=== PATIENT | male | born 1965 | race Caucasian/White ===

== ENCOUNTER 2016-11-06 13:11 | Outpatient (CLI) | payer MEDICAID | END 2016-11-06 13:12 | disposition home or self-care (01) | DX: Z71.3 Dietary counseling and surveillance (principal); E11.8 Type 2 diabetes mellitus with unspecified complications; Z68.39 Body mass index [BMI] 39.0-39.9, adult ==

== ENCOUNTER 2016-11-14 11:00 | Outpatient (CLI) | payer MEDICAID | END 2016-11-14 11:01 | disposition home or self-care (01) | DX: Z71.3 Dietary counseling and surveillance (principal); E11.8 Type 2 diabetes mellitus with unspecified complications; Z68.41 Body mass index [BMI] 40.0-44.9, adult ==

== ENCOUNTER 2016-11-29 | Outpatient (CLI) | payer MEDICAID | END 2016-11-29 10:40 | disposition home or self-care (01) ==

== ENCOUNTER 2016-12-27 07:08 | Outpatient (CLI) | payer MEDICAID | END 2016-12-27 07:09 | disposition home or self-care (01) | DX: E11.9 Type 2 diabetes mellitus without complications (principal) ==

== ENCOUNTER 2017-03-31 08:06 | Outpatient (CLI) | payer MEDICAID ==
[2017-03-31 13:54] LABS: HEMOGLOBIN A1C 0.87 g/dL
[2017-03-31 14:01] LABS: POTASSIUM 3.8 mmol/L (3.5-5.0)
[2017-03-31 14:18] LABS: THYROID STIMULATING HORMONE 0.23 uIU/mL (0.34-5.60)
== END 2017-03-31 08:07 | disposition home or self-care (01) ==
LOC: LAB.N 08:06
PROVIDERS: ATTEND Family Medicine
DX: E11.9 Type 2 diabetes mellitus without complications (principal); E55.9 Vitamin D deficiency, unspecified; E03.9 Hypothyroidism, unspecified
CPT/HCPCS: 36415; 80048; 82306; 83036; 84439; 84443

== ENCOUNTER 2017-05-09 14:28 | Outpatient (CLI) | payer MEDICAID ==
[2017-05-09 20:23] LABS: THYROID STIMULATING HORMONE 0.24 uIU/mL (0.34-5.60)
== END 2017-05-09 14:29 | disposition home or self-care (01) ==
LOC: LAB.WCP 14:28
PROVIDERS: ATTEND Family Medicine
DX: E03.9 Hypothyroidism, unspecified (principal)
CPT/HCPCS: 36415; 84439; 84443; 84481

== ENCOUNTER 2017-07-01 14:40 | Outpatient (CLI) | payer MEDICAID | END 2017-07-01 14:41 | disposition home or self-care (01) | LOC: SC 14:40 | PROVIDERS: ATTEND Nurse Practitioner Family | DX: G47.33 Obstructive sleep apnea (adult) (pediatric) (principal) | CPT/HCPCS: 99212; 99214 ==

== ENCOUNTER 2017-07-03 15:36 | Outpatient (CLI) | payer MEDICAID ==
[2017-07-03 12:57] LABS: CALCIUM 8.9 mg/dL (8.5-10.3); CREATININE 1.1 mg/dL (0.6-1.2); POTASSIUM 3.6 mmol/L (3.5-5.0)
[2017-07-03 13:18] LABS: HEMOGLOBIN A1C 0.58 g/dL
[2017-07-03 13:20] LABS: THYROID STIMULATING HORMONE 1.2 uIU/mL (0.34-5.60)
== END 2017-07-03 15:37 | disposition home or self-care (01) ==
LOC: LAB.N 15:36
PROVIDERS: ATTEND Family Medicine
DX: E11.9 Type 2 diabetes mellitus without complications (principal); E03.9 Hypothyroidism, unspecified
CPT/HCPCS: 36415; 80048; 83036; 84439; 84443; 84481

== ENCOUNTER 2017-10-16 13:00 | Outpatient (CLI) | payer MEDICAID | END 2017-10-16 13:15 | disposition home or self-care (01) | LOC: RT.N 13:00 | PROVIDERS: ATTEND Family Medicine | DX: I49.9 Cardiac arrhythmia, unspecified (principal); E11.9 Type 2 diabetes mellitus without complications | CPT/HCPCS: 93005 ==

== ENCOUNTER 2018-03-03 08:00 | Outpatient (CLI) | payer MEDICAID ==
[2018-03-03 13:57] LABS: CALCIUM 8.8 mg/dL (8.5-10.3); CREATININE 1.1 mg/dL (0.6-1.2)
[2018-03-03 15:08] LABS: HB2 TOTAL 15.9 g/dL; HEMOGLOBIN A1C 0.74 g/dL; HEMOGLOBIN A1C % 6.4 % (4.6-6.2)
== END 2018-03-03 08:01 | disposition home or self-care (01) ==
LOC: LAB.WCP 08:00
PROVIDERS: ATTEND Family Medicine
DX: E11.9 Type 2 diabetes mellitus without complications (principal)
CPT/HCPCS: 36415; 80048; 83036

== ENCOUNTER 2020-07-26 20:48 | Outpatient (CLI) | payer OTHER | END 2020-07-26 20:49 | disposition home or self-care (01) | LOC: COV 20:48 | PROVIDERS: ATTEND Family Medicine | DX: R50.9 Fever, unspecified (principal); Z20.828 Contact with and (suspected) exposure to other viral communicable diseases ==

== ENCOUNTER 2023-11-05 15:07 | Outpatient (CLI) | payer OTHER ==
--- NOTE | 2023-11-05 15:57 | Sleep Patient Instructions ---
Sleep Center Visit Summary - Patient Visit Information Reason for Visit: Initial consultation - Patient Instructions Additional Instructions: You will continue with CPAP therapy with pressure set at 4-20 cmH2O. We encourage you to continue to try to lose weight. Please follow up with the sleep care office in 1 year. - Clinic Information Contact: [facility] [address] [place] [address] [email or web address] T: [phone]
--- NOTE | 2023-11-05 16:03 | SLEEP CARE CONSULTATION ---
Information from patient questionnaire entered by Bianca Joseph. I have reviewed and concur with the information entered by Bianca Joseph. This document represents the service I personally performed and the decisions made by me, Nasrin Carranza ARNP. History of Present Illness Service Date and Time: 11/05/2023 1507 Reason for Visit: New patient, sleep apnea on CPAP therapy, Re-establish care Chief Complaint: reports: Excessive daytime sleepiness, Fatigue Date of Onset: ON AND OFF SINCE 2011 Usual bedtime: 930-1030PM Time it takes to fall asleep: 15-20MIN Snores at night: No Observed to quit breathing while asleep: Yes Sleeps alone due to snoring: No Number of times waking at night: 1-2 Reasons for waking at night: reports: Bathroom Toss, Turn, or Twitch while sleeping: No Recalls having dreams: Yes Usually gets out of bed at: 6AM Feels refreshed in the morning: No Morning headache: No Sleepy or fatigued during the day: Yes Ever fallen asleep while driving: No Takes day naps: Yes Dreams during day naps: No Prior sleep studies: Yes Year and Where: [facility] 2012 Additional HPI information: VY KAY was previously diagnosed to have mild, AHI 5.4 with supine AHI 26.5, obstructive sleep apnea-hypopnea syndrome and returned today to re- establish care for CPAP therapy. - Parasomnia Symptoms Ever been unable to move upon waking from sleep: No Walks in sleep: No Talks in sleep: No Ever acted out dreams in sleep: No Ever felt weak in the knees when startled or emotional: No Bothered by creepy, crawly, restless sensations in legs: No Problems with memory or concentration: Yes CPAP Compliance Data - Data Reviewed with Patient Average duration of nightly device use: 7:54 hours Compliance rate %: 98.8 (347/348 days used) Current pressure setting (cmH2O): 4-20 Average residual AHI: 2.1 Compliance data discussion: He has a Dreamstation 2 that he received about a year ago from [employer] to replace last machine on recall. He used to use [employer] for supplies but he buying his supplies online. He is using a full face [employer] Quattro Air, medium cushion. He changes the cushion every three months. Subjective Patient concerns: denies: aerophagia, mask discomfort, air blowing in eyes, mask leak noise, condensation in mask/hose, nasal congestion, dry mouth, nose, throat, epistaxis Observed to snore while using device: No Current pressure setting perceived as: comfortable On therapy, patient: reports: other (He is not feeling rested now but it definitely did improve sleep and restfulness when he first used it). denies: drowsiness while driving Initial [place] Sleepiness Scale score: 3 (11/05/23) Past Medical History Past Medical History: reports: Hypertension, Diabetes, Hypothyroidism, Fibromyalgia, Anxiety, Depression, Other (HYPERLIPIDEMIA) Social History The patient's occupation is a [employer]. Patient is and lives in [place]. Have you smoked in the past 12 months: No Alcohol use: No Caffeine use: Yes Caffeine amount and frequency: 10-12OZ 4X PER WORK DAY Family History Family history of sleep disordered breathing: No Allergies and Home Medications Known drug allergies: Yes ( LISTED) Drug allergies reviewed: Yes Home medication list reviewed: Yes (as listed) Allergy and home medication list: Home Medications Medication Instructions Recorded Confirmed Last Taken Type Aspirin [[place]] See Rx Instructions .ROUTE .COMPLEX 11/05/23 11/05/23 Unknown History Atorvastatin Calcium See Rx Instructions .ROUTE .COMPLEX 11/05/23 11/05/23 U nknown History B Complx/C/Folic/Zinc/Cup Mcmahan/E See Rx Instructions .ROUTE .COMPLEX 11/05/23 11/05/23 Unknown History [Sofezntooqvp-Pavp-Vuoafd Tab] Buspirone HCl See Rx Instructions .ROUTE .COMPLEX 11/05/23 11/05/23 Unknown History Calcium Carb/Mag Ox/Zinc Sulf See Rx Instructions .ROUTE .COMPLEX 11/05/23 11/05/23 Unknown History [Tsj-Avj-Gaqg 334-134-5 mg Tab] Cholecalciferol (Vitamin D3) See Rx Instructions .ROUTE .COMPLEX 11/05/23 11/05/23 Unknown History [Vitamin D3] Ferrous Sulfate See Rx Instructions .ROUTE .COMPLEX 11/05/23 11/05/23 Unknown History Gabapentin Enacarbil [Horizant] See Rx Instructions .ROUTE .COMPLEX 11/05/23 11/05/23 Unknown History Insulin Degludec [Tresiba] See Rx Instructions .ROUTE .COMPLEX 11/05/23 11/05/23 Unknown History Levothyroxine [Synthroid] See Rx Instructions .ROUTE .COMPLEX 11/05/23 11/05/23 Unknown History Lisinopril [Zestril] See Rx Instructions .ROUTE .COMPLEX 11/05/23 11/05/23 Unknown History Loratadine [Claritin] See Rx Instructions .ROUTE .COMPLEX 11/05/23 11/05/23 Unknown History Metformin HCl See Rx Instructions .ROUTE .COMPLEX 11/05/23 11/05/23 Unknown History Multivitamin See Rx Instructions .ROUTE .COMPLEX 11/05/23 11/05/23 Unknown History [place]-3/Dha/Epa/Fish Oil [Fish Oil See Rx Instructions .ROUTE .COMPLEX 11/05/23 11/05/23 Unknown History 1,000 mg Softgel] buPROPion HCL [Wellbutrin Xl] See Rx Instructions .ROUTE .COMPLEX 11/05/23 11/05/23 Unknown History metroNIDAZOLE 0.75% GEL [Flagyl See Rx Instructions .ROUTE .COMPLEX 11/05/23 11/05/23 Unknown History Gel] Review of Systems Weight gain over past 5 years: 30 Cardiovascular: reports: high blood pressure Respiratory: denies: shortness of breath Gastrointestinal: denies: heartburn Neurological: denies: headaches Psychiatric: reports: anxiety, depression Ear/Nose/Throat: reports: tonsillectomy, wisdom teeth removed Endocrine: reports: thyroid disease Physical Exam Vital signs obtained and entered by: BIANCA Hernandez MA Blood Pressure: 155/84 (LEFT ARM) Cuff size: regular Heart Rate: 97 O2 Saturation: 96 Height: 5 ft 9.25 in Weight: 261 lb 3.2 oz Body Mass Index: 38.2 BMI Classification: Obese Neck circumference: 17.25 Heart: regular rate and rhythm Lungs: clear bilaterally Impression and Plan 1. Obstructive Sleep Apnea-Hypopnea Syndrome, mild to moderate, with good treatment compliance and good apnea control. He states that when he first was placed on the CPAP, he definitely felt that he was sleeping well and well rested. He states in last few years he does not feel he is sleeping well or very rested. Currently, his primary provider is having him evaluated for possible Parkinson's. He feels this may be cause of his fatigue. Patient has significant improvement of their sleep apnea and is satisfied with current CPAP therapy. He received a DreamStation 2 through the [employer]. He likes the machine and is okay with the pressures set at 4-20 cmH2O. He is currently paying for his supplies because he has a high deductible and it is cheaper for him than using a DME supplier. Patient's apnea severity and rationale for treatment to reduce apnea, improve sleep quality and reduce cardiovascular and cerebrovascular events was reviewed. I also reviewed the benefit of consistent device use of CPAP for hypertension, diabetes, depression, anxiety and fibromyalgia. 2. Obesity, unspecified. Currently patients BMI is 38.2. Obesity increases the risk of apnea, CPAP pressure requirements and overall health risks especially cardiovascular and diabetes. Thus patient is advised to continue to try to lose weight. * Continue auto CPAP pressure at 4-20 cmH2O * Notify me if snoring with mask or feeling that the pressure is too much or too little * Attempt to lose weight * Call this office if any problems using CPAP * Return for follow up in 12 months, or sooner if concerns arise Counseling Topics: Spare mask, Weight loss health impact Follow up with Sleep Care in: 1 year Visit Type: In Office Time Spent with Patient (minutes): 33 Provider Statement: I spent 100% of the Face to Face Visit with the patient with greater than 50% spent counseling the patient and coordination of care.
[2023-11-05 16:26] VITALS: BP 155/84; O2SAT 96
== END 2023-11-05 15:08 | disposition home or self-care (01) ==
LOC: SC 15:07
PROVIDERS: ATTEND Nurse Practitioner Family
DX: G47.33 Obstructive sleep apnea (adult) (pediatric) (principal); E11.9 Type 2 diabetes mellitus without complications; Z79.84 Long term (current) use of oral hypoglycemic drugs; I10 Essential (primary) hypertension; E66.9 Obesity, unspecified; Z68.38 Body mass index [BMI] 38.0-38.9, adult
CPT/HCPCS: 99203; 99212